=== PATIENT | female | born 1960 | race Caucasian/White ===

== ENCOUNTER 2024-01-02 11:34 | Outpatient (CLI) | payer OTHER, SELFPAY | END 2024-01-02 11:35 | disposition home or self-care (01) | PROVIDERS: Visit Provider Emergency Medicine | DX: I10 Essential (primary) hypertension (principal); Z13.29 Encounter for screening for other suspected endocrine disorder | CPT/HCPCS: 80048; 84443 ==

== ENCOUNTER 2024-09-11 13:31 | Outpatient (CLI) | payer OTHER, SELFPAY ==
[2024-09-14 02:04] LABS: HPV Source Cervix; HPV, High Risk by TMA Not Detected
== END 2024-09-11 13:32 | disposition home or self-care (01) ==
PROVIDERS: PCP Emergency Medicine; Visit Provider Emergency Medicine
DX: Z00.00 Encounter for general adult medical examination without abnormal findings (principal); I10 Essential (primary) hypertension; Z11.51 Encounter for screening for human papillomavirus (HPV); Z12.4 Encounter for screening for malignant neoplasm of cervix
CPT/HCPCS: 80048; 80061; 87624; 87625; 88141; 88142